=== PATIENT | male | born 1980 | race Hispanic/Latino ===

== ENCOUNTER 2018-06-23 23:33 | Emergency (ER) | payer BC ==
[2018-06-24 00:23] VITALS: RESP 18; O2SAT 96; BMI 27.3
[2018-06-24 01:30] VITALS: BP 148/97; PULSE 74
[2018-06-24 02:01] LABS: INFLUENZA A B NEGATIVE FOR FLU A/B (NEGATIVE)
--- NOTE | 2018-06-24 02:14 | ED PDOC ---
Arrival/HPI - General Chief Complaint: Cough, Cold, Congestion Time Seen by Provider: 06/24/18 00:30 Historian: Patient - History of Present Illness Narrative History of Present Illness (Text): 37 y/o male with PMH scoliosis presents to ED c/o tactile fever, sinus congestion, myalgias, headache, and sore throat x 3 days. Associated cough intermittently productive of yellow sputum. Taking nyquil and tylenol for symptoms. Last dose tylenol 10pm. No recent abx use, sick contacts, or recent travel. Denies abdominal pain, N/V/D, neck pain, SOB, chest pain, palpitations, back pain, vision changes, lightheadedness, syncope, or any other associated symptoms. Past Medical History - Provider Review Nursing Documentation Reviewed: Yes - Infectious Disease Hx of Infectious Diseases: None - Psychiatric Hx Substance Use: No Family/Social History - Physician Review Nursing Documentation Reviewed: Yes Family/Social History: No Known Family HX Smoking Status: Never Smoked Hx Alcohol Use: No Hx Substance Use: No Allergies/Home Meds Allergies/Adverse Reactions: Allergies No Known Allergies Allergy (Verified 06/24/18 00:39) Review of Systems - Review of Systems Constitutional: Fevers Eyes: Normal. absent: Vision Changes ENT: Sore Throat, Rhinorrhea, Sinus Congestion Respiratory: Cough, Sputum Cardiovascular: Normal. absent: Chest Pain, Palpitations, Syncope Gastrointestinal: Normal. absent: Abdominal Pain, Nausea, Vomiting Genitourinary Male: Normal. absent: Dysuria, Frequency Musculoskeletal: Normal. absent: Back Pain, Neck Pain Skin: Normal. absent: Rash Neurological: absent: Dizziness Endocrine: Normal. absent: Diaphoresis Hemo/Lymphatic: Normal. absent: Adenopathy Psychiatric: Normal Physical Exam Vital Signs Reviewed: Yes Vital Signs Temp Pulse Resp BP Pulse Ox 06/24/18 01:23 98.1 F 74 18 148/97 H 96 06/24/18 00:23 98.1 F 101 H 18 159/96 H 96 Temperature: Afebrile Blood Pressure: Normal Pulse: Regular Respiratory Rate: Normal Appearance: Positive for: Well-Appearing, Non-Toxic, Comfortable Pain Distress: None Mental Status: Positive for: Alert and Oriented X 3 - Systems Exam Head: Present: Atraumatic, Normocephalic Pupils: Present: PERRL Extroacular Muscles: Present: EOMI Conjunctiva: Present: Normal Ears: Present: Normal, NORMAL TM Mouth: Present: Moist Mucous Membranes Pharnyx: Present: Normal. No: ERYTHEMA, EXUDATE, TONSILS ENLARGED, Peritonsilar Swelling, Uvular Deviation, Soft Palate/Uvular Edema Nose (External): Present: Atraumatic Nose (Internal): Present: Rhinorrhea Neck: Present: Normal Range of Motion. No: Other (meningeal signs) Respiratory/Chest: Present: Clear to Auscultation, Good Air Exchange. No: Respiratory Distress, Accessory Muscle Use, Wheezes, Decreased Breath Sounds, Rhonchi Cardiovascular: Present: Regular Rate and Rhythm, Normal S1, S2, Peripheal Pulses Present. No: Murmurs Abdomen: Present: Normal Bowel Sounds. No: Tenderness, Distention, Peritoneal Signs Back: Present: Normal Inspection Upper Extremity: Present: Normal Inspection, Normal ROM, NORMAL PULSES, Neurovascularly Intact, Capillary Refill < 2s. No: Cyanosis, Edema Lower Extremity: Present: Normal Inspection, NORMAL PULSES, Normal ROM, Neurovascularly Intact, Capillary Refill < 2 s. No: Edema Neurological: Present: GCS=15, CN II-XII Intact, Speech Normal, Motor Func Grossly Intact, Normal Sensory Function, Gait Normal Skin: Present: Warm, Dry, Normal Color. No: Rashes Lymphatic: No: Cervical Adenopathy Psychiatric: Present: Alert, Oriented x 3, Normal Insight, Normal Concentration, Normal Affect, Normal Mood Medical Decision Making ED Course and Treatment: Initial Plan * CXR * Flu, Strep * Reassess and Disposition CXR read by me as no active disease Flu: neg Strep: neg Elevated BP readings discussed with patient, and instructed him to followup with his PMD for BP checks. Pt agrees and verbalizes understanding. Plan of care discussed with patient, and strict instructions given regarding prescriptions, importance of follow up, and signs to return to Emergency Department, to include abdominal pain, dizziness, vision changes, N/V, or any other new/worsening symptoms. Patient verbalizes understanding of discussion. Patient A&Ox3, ambulating with steady gait, stable for discharge home. - Lab Interpretations Lab Results: Lab Results 06/24/18 01:25: Influenza Typ A,B (EIA) Negative for flu a/b, Grp A Beta Strep Ag Negative - RAD Interpretation Radiology Orders: 06/24/18 00:55 CXR (PA/LAT) [CHEST TWO VIEWS (PA/LAT)] [RAD] Stat Disposition/Present on Arrival - Present on Arrival Any Indicators Present on Arrival: No History of DVT/PE: No History of Uncontrolled Diabetes: No Urinary Catheter: No History of Decub. Ulcer: No History Surgical Site Infection Following: None - Disposition Have Diagnosis and Disposition been Completed?: Yes Diagnosis: Upper respiratory infection, Elevated BP without diagnosis of hypertension Disposition: HOME/ ROUTINE Disposition Time: 02:20 Patient Plan: Discharge Condition: STABLE Discharge Instructions (ExitCare): High Blood Pressure in Adults Additional Instructions: Increase fluids Take Z-Troy as prescribed Followup with primary doctor within 2 days Return to ER for any new/worsening symptoms Prescriptions: Azithromycin [Z-Troy] 250 mg PO DAILY #6 tab Ref[place]: [facility] [place] - Follow up with primary Erlinda Marquis MD [Medical Doctor] - Follow up with primary Forms: [facility] (Frisian), WORK NOTE
[2018-06-24 02:37] VITALS: TEMP 98.4
--- NOTE | 2018-06-24 08:16 | RAD ---
Date of service: 06/24/2018 HISTORY: r/o PNA COMPARISON: No prior. TECHNIQUE: Chest PA and lateral FINDINGS: LUNGS: No active pulmonary disease. PLEURA: No significant pleural effusion identified. No pneumothorax apparent. CARDIOVASCULAR: No aortic atherosclerotic calcification present. Normal cardiac size. No pulmonary vascular congestion. OSSEOUS STRUCTURES: Hardware in the lower thoracic spine VISUALIZED UPPER ABDOMEN: Normal. OTHER FINDINGS: None. IMPRESSION: No active disease.
== END 2018-06-24 02:34 | disposition home or self-care (01) ==
LOC: ED 23:33
DX: J06.9 Acute upper respiratory infection, unspecified (principal); R03.0 Elevated blood-pressure reading, without diagnosis of hypertension